=== PATIENT | female | born 1950 | race Caucasian/White ===

== ENCOUNTER 2018-04-07 12:54 | Outpatient (CLI) | payer MEDICARE | END 2018-04-07 12:55 | disposition home or self-care (01) | LOC: BICMAMMO 12:54 | PROVIDERS: ATTEND Family Medicine | DX: Z12.31 Encounter for screening mammogram for malignant neoplasm of breast (principal); Z00.00 Encounter for general adult medical examination without abnormal findings; R92.1 Mammographic calcification found on diagnostic imaging of breast; Z80.3 Family history of malignant neoplasm of breast; Z85.6 Personal history of leukemia | CPT/HCPCS: 77063; 77067 ==

== ENCOUNTER 2018-04-13 08:49 | Outpatient (CLI) | payer MEDICARE, OTHER | END 2018-04-13 08:50 | disposition home or self-care (01) | LOC: BICCT 08:49 | PROVIDERS: ATTEND Otolaryngology Plastic Surgery within the Head & Neck | DX: R59.9 Enlarged lymph nodes, unspecified (principal) | CPT/HCPCS: 70490 ==

== ENCOUNTER 2018-04-25 14:18 | Outpatient (CLI) | payer MEDICARE | END 2018-04-25 14:19 | disposition home or self-care (01) | LOC: BICMAMMO 14:18 | PROVIDERS: ATTEND Family Medicine | DX: R92.1 Mammographic calcification found on diagnostic imaging of breast (principal); Z80.3 Family history of malignant neoplasm of breast; Z85.6 Personal history of leukemia | CPT/HCPCS: 76642; 77065; G0279 ==

== ENCOUNTER 2019-10-05 19:30 | Outpatient (CLI) | payer MEDICARE, BC | END 2019-10-05 19:31 | disposition home or self-care (01) | LOC: SLEEPLAB 19:30 | PROVIDERS: ATTEND Family Medicine | DX: G47.33 Obstructive sleep apnea (adult) (pediatric) (principal); R53.83 Other fatigue; R06.83 Snoring; F41.9 Anxiety disorder, unspecified; G47.9 Sleep disorder, unspecified; I10 Essential (primary) hypertension; E66.9 Obesity, unspecified; Z68.43 Body mass index [BMI] 50.0-59.9, adult | CPT/HCPCS: 95811 ==

== ENCOUNTER 2021-06-04 10:52 | Outpatient (CLI) | payer MEDICARE | END 2021-06-04 10:53 | disposition home or self-care (01) | LOC: BICRAD 10:52 | PROVIDERS: ATTEND Family Medicine | DX: R06.02 Shortness of breath (principal) | CPT/HCPCS: 36415; 71046; 80061; 80076 ==

== ENCOUNTER 2023-10-19 16:33 | Inpatient (IN) | payer MEDICARE ==
[2023-10-19 17:29] LABS: #Basophils 0.1 thou/uL (0.0-0.2); #Eosinphils 0.2 thou/uL (0.0-0.7); #Monocytes 0.5 thou/uL (0.11-0.59); %Eosinophils 2.4 % (0.0-10.0); %Lymphocytes 29.5 % (21.0-51.0); %Monocytes 7.9 % (0.0-10.0); %Neutrophils 59.1 % (42.0-75.0); Hematocrit 40.6 % (36.0-47.0); Mean Corpuscular Hemoglobin 33.4 pg (27.0-31.0); Mean Corpuscular Volume 104.4 fl (78.0-98.0); Mean Platelet Volume 9.5 fL (7.4-10.4); Platelet Count 252 10x3/uL (130-400); RBC Distribution Width 15.6 % (11.5-14.5); Red Blood Cell (RBC) Count 3.89 mill/uL (4.20-5.40); White Blood Cell (WBC) Count 6.7 10x3/uL (4.8-10.8)
[2023-10-19 17:58] LABS: Troponin I Less than 0.010 ng/mL (< 0.028)
[2023-10-19 17:59] LABS: ALT (SGPT) 8 U/L (8-55); AST (SGOT) 13 U/L (5-34); Albumin 3.8 g/dL (3.4-4.8); Alkaline Phosphatase 116 U/L (40-110); Anion Gap 17 mmol/L (10-20); BUN (Urea Nitrogen) 14 mg/dL (9.8-20.1); Bilirubin, Total 0.3 mg/dL (0.2-1.2); Calc. Creatinine Clearance 0 mL/min (70-130); Carbon Dioxide 24 mmol/L (23-31); Chloride 106 mmol/L (98-107); Estimated GFR 62; Globulin 3.1 g/dL (2.4-3.5); Glucose 165 mg/dL (83-110); Protein, Total 6.9 g/dL (5.8-8.1); Sodium 143 mmol/L (136-145)
[2023-10-19 18:10] LABS: INR-International Normal Ratio 1.1; PTT 27.8 sec (22.9-36.1); Prothrombin Time 14.2 sec (12.0-14.7)
[2023-10-19] MEDS ORDERED: Acetaminophen 325 MG TAB PO PRN (19:52)
[2023-10-19] MEDS ORDERED: levETIRAcetam 500 MG/5 ML VIAL ONE (19:57)
[2023-10-19] MEDS ORDERED: Lacosamide 200 MG in Sodium Chloride 0.9% 50 ML IVPB SCH (20:15)
[2023-10-19 22:58] VITALS: BMI 40.8
[2023-10-20] MEDS ORDERED: Lorazepam 2 MG/ML VIAL SLOW IVP PRN (03:03)
[2023-10-20 04:57] LABS: #Basophils 0.1 thou/uL (0.0-0.2); #Eosinphils 0.1 thou/uL (0.0-0.7); #Monocytes 0.7 thou/uL (0.11-0.59); #Neutrophils 2.9 thou/uL (1.40-6.50); %Basophils 0.8 % (0.0-1.0); %Eosinophils 1.5 % (0.0-10.0); %Lymphocytes 47.5 % (21.0-51.0); %Monocytes 9.5 % (0.0-10.0); %Neutrophils 40.6 % (42.0-75.0); Hematocrit 37.4 % (36.0-47.0); Hemoglobin 12.2 g/dL (12.0-16.0); Mean Corpuscular HGB CONC 32.6 g/dL (32.0-36.0); Mean Corpuscular Hemoglobin 33.7 pg (27.0-31.0); Mean Corpuscular Volume 103.3 fl (78.0-98.0); Mean Platelet Volume 9.3 fL (7.4-10.4); Platelet Count 240 10x3/uL (130-400); RBC Distribution Width 15.5 % (11.5-14.5); Red Blood Cell (RBC) Count 3.62 mill/uL (4.20-5.40); White Blood Cell (WBC) Count 7.1 10x3/uL (4.8-10.8)
[2023-10-20] MEDS: Levothyroxine 150 MCG TAB PO SCH (05:11)
[2023-10-20 05:28] LABS: Anion Gap 12 mmol/L (10-20); BUN (Urea Nitrogen) 13 mg/dL (9.8-20.1); Calc. Creatinine Clearance 103 mL/min (70-130); Calcium 8.9 mg/dL (7.8-10.44); Carbon Dioxide 26 mmol/L (23-31); Chloride 109 mmol/L (98-107); Estimated GFR 69; Glucose 118 mg/dL (83-110); Potassium 4.4 mmol/L (3.5-5.1); Sodium 143 mmol/L (136-145)
[2023-10-20] MEDS: Metoprolol Tartrate 25 MG TAB PO SCH ×2 (10:41→20:23)
[2023-10-20] MEDS: levETIRAcetam 500 MG TAB PO SCH ×2 (10:42→20:24)
[2023-10-20] MEDS: Apixaban 5 MG TAB PO SCH ×2 (10:42→20:23)
[2023-10-20] MEDS: Sertraline 100 MG TAB PO SCH (10:42)
[2023-10-20] MEDS: Losartan 25 MG TAB PO SCH (10:43)
[2023-10-20] MEDS: Letrozole 2.5 MG TAB PO SCH (10:43)
[2023-10-20] MEDS: Lacosamide 50 mg Tablet PO SCH ×2 (10:44→20:23)
[2023-10-20] MEDS: Ondansetron PF 4 MG/2 ML Vial IVP PRN (12:24)
[2023-10-21 04:11] LABS: #Basophils 0.1 thou/uL (0.0-0.2); #Eosinphils 0.2 thou/uL (0.0-0.7); #Monocytes 0.6 thou/uL (0.11-0.59); %Eosinophils 3.8 % (0.0-10.0); %Lymphocytes 53.4 % (21.0-51.0); %Neutrophils 32.5 % (42.0-75.0); Hematocrit 39.9 % (36.0-47.0); Hemoglobin 12.7 g/dL (12.0-16.0); Mean Corpuscular HGB CONC 31.8 g/dL (32.0-36.0); Mean Corpuscular Hemoglobin 33.4 pg (27.0-31.0); Mean Platelet Volume 9.6 fL (7.4-10.4); Platelet Count 225 10x3/uL (130-400); RBC Distribution Width 15.8 % (11.5-14.5); White Blood Cell (WBC) Count 6.1 10x3/uL (4.8-10.8)
[2023-10-21 04:31] LABS: Anion Gap 12 mmol/L (10-20); BUN (Urea Nitrogen) 15 mg/dL (9.8-20.1); Calc. Creatinine Clearance 83 mL/min (70-130); Calcium 9.1 mg/dL (7.8-10.44); Carbon Dioxide 26 mmol/L (23-31); Chloride 108 mmol/L (98-107); Estimated GFR 54; Glucose 110 mg/dL (83-110); Potassium 4.1 mmol/L (3.5-5.1); Sodium 142 mmol/L (136-145)
[2023-10-21] MEDS: Levothyroxine 150 MCG TAB PO SCH (05:18)
[2023-10-21] MEDS: Lacosamide 50 mg Tablet PO SCH ×2 (09:34→20:14)
[2023-10-21] MEDS: levETIRAcetam 500 MG TAB PO SCH ×2 (09:34→20:14)
[2023-10-21] MEDS: Losartan 25 MG TAB PO SCH (09:35)
[2023-10-21] MEDS: Apixaban 5 MG TAB PO SCH ×2 (09:35→20:14)
[2023-10-21] MEDS: Sertraline 100 MG TAB PO SCH (09:35)
[2023-10-21] MEDS: Letrozole 2.5 MG TAB PO SCH (09:35)
[2023-10-21] MEDS: Metoprolol Tartrate 25 MG TAB PO SCH ×2 (09:36→20:14)
[2023-10-21] MEDS: Ondansetron PF 4 MG/2 ML Vial IVP PRN (17:26)
[2023-10-22 05:36] LABS: Anion Gap 13 mmol/L (10-20); BUN (Urea Nitrogen) 15 mg/dL (9.8-20.1); Calc. Creatinine Clearance 98 mL/min (70-130); Calcium 8.7 mg/dL (7.8-10.44); Carbon Dioxide 24 mmol/L (23-31); Chloride 106 mmol/L (98-107); Estimated GFR 65; Glucose 106 mg/dL (83-110); Sodium 139 mmol/L (136-145)
[2023-10-22] MEDS: Levothyroxine 150 MCG TAB PO SCH (05:44)
[2023-10-22] MEDS: Letrozole 2.5 MG TAB PO SCH (09:47)
[2023-10-22] MEDS: Apixaban 5 MG TAB PO SCH ×2 (09:48→20:14)
[2023-10-22] MEDS: Metoprolol Tartrate 25 MG TAB PO SCH ×2 (09:48→20:14)
[2023-10-22] MEDS: levETIRAcetam 500 MG TAB PO SCH ×2 (09:48→20:14)
[2023-10-22] MEDS: Lacosamide 50 mg Tablet PO SCH ×2 (09:48→20:14)
[2023-10-22] MEDS: Sertraline 100 MG TAB PO SCH (09:49)
[2023-10-22] MEDS: Losartan 25 MG TAB PO SCH (09:49)
[2023-10-23] MEDS: Levothyroxine 150 MCG TAB PO SCH (05:41)
[2023-10-23 08:09] VITALS: TEMP 97.8
[2023-10-23] MEDS ORDERED: levETIRAcetam 500 MG TAB PO SCH (09:00)
[2023-10-23] MEDS: Apixaban 5 MG TAB PO SCH (09:57)
[2023-10-23] MEDS: Losartan 25 MG TAB PO SCH (09:58)
[2023-10-23] MEDS: Lacosamide 50 mg Tablet PO SCH (09:58)
[2023-10-23] MEDS: Metoprolol Tartrate 25 MG TAB PO SCH (09:58)
[2023-10-23] MEDS: Sertraline 100 MG TAB PO SCH (09:59)
[2023-10-23] MEDS: Letrozole 2.5 MG TAB PO SCH (09:59)
[2023-10-23] MEDS: levETIRAcetam 500 MG TAB PO SCH (10:03)
[2023-10-23 14:29] VITALS: BP 131/76
== END 2023-10-23 12:17 | disposition home or self-care (01) | DRG 101 ==
LOC: ERS 16:33 → 2SE 19:54 → INTOOBSV 19:54 → 2SE 10-20 16:55 → OBSVTOIN 10-21 16:52
PROVIDERS: ADMIT Internal Medicine; ATTEND Internal Medicine
PROC: 4A00X4Z Measurement of Central Nervous Electrical Activity, External Approach (ICD-10-PCS; principal; 2023-10-20)
PROC: 5A09357 Assistance with Respiratory Ventilation, Less than 24 Consecutive Hours, Continuous Positive Airway Pressure (ICD-10-PCS; 2023-10-21)
DX: G40.919 Epilepsy, unspecified, intractable, without status epilepticus (principal); C79.51 Secondary malignant neoplasm of bone; I10 Essential (primary) hypertension; E03.9 Hypothyroidism, unspecified; Z66 Do not resuscitate; C50.912 Malignant neoplasm of unspecified site of left female breast; G47.33 Obstructive sleep apnea (adult) (pediatric); E66.9 Obesity, unspecified; I48.0 Paroxysmal atrial fibrillation; R42 Dizziness and giddiness; Z91.018 Allergy to other foods; Z88.5 Allergy status to narcotic agent; Z88.8 Allergy status to other drugs, medicaments and biological substances; Z98.890 Other specified postprocedural states; Z90.49 Acquired absence of other specified parts of digestive tract; Z90.710 Acquired absence of both cervix and uterus; Z90.89 Acquired absence of other organs; Z80.3 Family history of malignant neoplasm of breast; Z87.891 Personal history of nicotine dependence
CPT/HCPCS: 36415; 36416; 70450; 70553; 71045; 80048; 80053; 80177; 84443; 84484; 85025; 85610; 85730; 93005; 95711; 95819; 96365; 96367; 96375; C9254; G0378; J1953; J2060; J2405

== ENCOUNTER 2023-10-23 18:58 | Inpatient (IN) | payer MEDICARE ==
[2023-10-23] MEDS ORDERED: Ondansetron PF 4 MG/2 ML Vial IVP PRN (19:53)
[2023-10-23] MEDS ORDERED: Ipratropium/Albuterol 3 ML NEB NEB PRN (19:53)
[2023-10-23] MEDS ORDERED: Ketorolac Tromethamine 30 MG/ML VIAL IVP PRN (19:57)
[2023-10-23] MEDS ORDERED: Cyclobenzaprine 10 MG TAB PO PRN (19:58)
[2023-10-23] MEDS ORDERED: hydrALAZINE 20 MG/ML VIAL SLOW IVP PRN (20:16)
[2023-10-23] MEDS ORDERED: fentaNYL 50 mcg/mL 1 mL Vial ONE (22:38)
[2023-10-23] MEDS ORDERED: PROPOFOL 0 ML ONE (22:39)
[2023-10-23] MEDS ORDERED: PROPOFOL 20 ML ONE (23:08)
[2023-10-24 00:59] VITALS: BMI 41.8
[2023-10-24] MEDS: Acetaminophen 500 MG TAB PO SCH ×5 (01:12→20:44)
[2023-10-24] MEDS: Sodium Chloride 0.9% 1,000 ML IV SCH ×3 (01:12→11:23)
[2023-10-24] MEDS: Famotidine/PF 20 mg/2ml Vial SLOW IVP SCH ×3 (01:12→20:44)
[2023-10-24] MEDS: Lacosamide 50 mg Tablet PO SCH ×3 (01:12→21:15)
[2023-10-24] MEDS: Pregabalin 25 MG CAP PO SCH ×3 (01:13→21:15)
[2023-10-24] MEDS: levETIRAcetam 500 MG TAB PO SCH ×3 (01:13→20:45)
[2023-10-24] MEDS: Metoprolol Tartrate 25 MG TAB PO SCH ×3 (01:13→20:44)
[2023-10-24] MEDS: Senokot S 8.6-50 MG TAB PO SCH ×3 (01:13→20:44)
[2023-10-24] MEDS: Ketorolac Tromethamine 30 MG/ML VIAL IVP SCH ×4 (01:14→17:41)
[2023-10-24] MEDS: Levothyroxine 150 MCG TAB PO SCH (05:51)
[2023-10-24 06:55] LABS: #Basophils 0.1 thou/uL (0.0-0.2); #Monocytes 0.8 thou/uL (0.11-0.59); #Neutrophils 4.8 thou/uL (1.40-6.50); %Basophils 0.6 % (0.0-1.0); %Eosinophils 0.5 % (0.0-10.0); %Lymphocytes 34.8 % (21.0-51.0); %Neutrophils 54.9 % (42.0-75.0); Hemoglobin 12.2 g/dL (12.0-16.0); Mean Corpuscular Hemoglobin 33.7 pg (27.0-31.0); Mean Corpuscular Volume 102.2 fl (78.0-98.0); Mean Platelet Volume 9.8 fL (7.4-10.4); Platelet Count 249 10x3/uL (130-400); RBC Distribution Width 14.8 % (11.5-14.5); Red Blood Cell (RBC) Count 3.62 mill/uL (4.20-5.40); White Blood Cell (WBC) Count 8.7 10x3/uL (4.8-10.8)
[2023-10-24 07:18] LABS: INR-International Normal Ratio 1.3; PTT 29.3 sec (22.9-36.1); Prothrombin Time 16.4 sec (12.0-14.7)
[2023-10-24 07:24] LABS: Anion Gap 13 mmol/L (10-20); BUN (Urea Nitrogen) 20 mg/dL (9.8-20.1); Calc. Creatinine Clearance 92 mL/min (70-130); Calcium 8.9 mg/dL (7.8-10.44); Carbon Dioxide 25 mmol/L (23-31); Chloride 107 mmol/L (98-107); Estimated GFR 59; Glucose 103 mg/dL (83-110); Sodium 141 mmol/L (136-145)
[2023-10-24] MEDS ORDERED: CEFAZOLIN 2 GM in Sodium Chloride 0.9% 100 ML IVPB SCH (07:30)
[2023-10-24] MEDS: Polyethylene Glycol 3350 17 GM Packet PO SCH (10:08)
[2023-10-24] MEDS: Sertraline 100 MG TAB PO SCH (11:24)
[2023-10-24] MEDS: Letrozole 2.5 MG TAB PO SCH (11:30)
[2023-10-24] MEDS ORDERED: CeleCOXIB 100 MG CAP PO SCH (21:00)
[2023-10-25] MEDS: Ketorolac Tromethamine 30 MG/ML VIAL IVP SCH ×3 (00:13→13:09)
[2023-10-25] MEDS: Acetaminophen 500 MG TAB PO SCH ×3 (03:29→14:03)
[2023-10-25] MEDS: Levothyroxine 150 MCG TAB PO SCH (05:37)
[2023-10-25 07:45] VITALS: TEMP 98.1
[2023-10-25] MEDS ORDERED: Famotidine 20 MG TAB PO SCH (09:00)
[2023-10-25] MEDS: levETIRAcetam 500 MG TAB PO SCH (09:46)
[2023-10-25] MEDS: Letrozole 2.5 MG TAB PO SCH (09:46)
[2023-10-25] MEDS: Sertraline 100 MG TAB PO SCH (09:46)
[2023-10-25] MEDS: Metoprolol Tartrate 25 MG TAB PO SCH (09:46)
[2023-10-25] MEDS: Senokot S 8.6-50 MG TAB PO SCH (09:50)
[2023-10-25] MEDS: Polyethylene Glycol 3350 17 GM Packet PO SCH (09:50)
[2023-10-25] MEDS: Pregabalin 25 MG CAP PO SCH (14:03)
[2023-10-25] MEDS: Lacosamide 50 mg Tablet PO SCH (14:04)
[2023-10-25 15:33] VITALS: BP 154/81
[2023-10-29] MEDS ORDERED: CeleCOXIB 100 MG CAP PO SCH (09:00)
== END 2023-10-25 15:47 | DRG 563 ==
LOC: ERS 18:58 → SURG A 19:58 → ERHOLD 22:37 → SURG A 10-24 00:28
PROVIDERS: ADMIT Surgery; ATTEND Surgery
DX: S82.851A Displaced trimalleolar fracture of right lower leg, initial encounter for closed fracture (principal); Z68.41 Body mass index [BMI] 40.0-44.9, adult; I10 Essential (primary) hypertension; E66.9 Obesity, unspecified; E03.9 Hypothyroidism, unspecified; I48.91 Unspecified atrial fibrillation; R56.9 Unspecified convulsions; W19.XXXA Unspecified fall, initial encounter; Z88.5 Allergy status to narcotic agent; Z88.8 Allergy status to other drugs, medicaments and biological substances; Z91.030 Bee allergy status; Z91.018 Allergy to other foods; Z91.09 Other allergy status, other than to drugs and biological substances; Z79.01 Long term (current) use of anticoagulants; Z85.3 Personal history of malignant neoplasm of breast; Z90.49 Acquired absence of other specified parts of digestive tract; Z90.710 Acquired absence of both cervix and uterus; Z87.891 Personal history of nicotine dependence; Z98.890 Other specified postprocedural states; Y92.9 Unspecified place or not applicable
CPT/HCPCS: 27818; 36415; 36416; 71045; 80048; 83880; 84146; 85025; 85610; 85730; 86850; 86900; 86901; 96374; 99152; G0390; J1885; J2405; J2704; J3010; J7050; S0028

== ENCOUNTER 2023-11-07 10:21 | Inpatient (IN) | payer MEDICARE ==
[2023-11-07 11:43] LABS: #Basophils 0.1 thou/uL (0.0-0.2); #Eosinphils 0.3 thou/uL (0.0-0.7); #Monocytes 0.6 thou/uL (0.11-0.59); #Neutrophils 3.6 thou/uL (1.40-6.50); %Basophils 1.1 % (0.0-1.0); %Eosinophils 3.5 % (0.0-10.0); %Lymphocytes 43.2 % (21.0-51.0); %Monocytes 7.7 % (0.0-10.0); %Neutrophils 44.3 % (42.0-75.0); Hematocrit 38.7 % (36.0-47.0); Hemoglobin 12.8 g/dL (12.0-16.0); Mean Corpuscular HGB CONC 33.1 g/dL (32.0-36.0); Mean Corpuscular Hemoglobin 33.3 pg (27.0-31.0); Mean Corpuscular Volume 100.8 fl (78.0-98.0); Mean Platelet Volume 9.4 fL (7.4-10.4); Platelet Count 370 10x3/uL (130-400); RBC Distribution Width 15.9 % (11.5-14.5); Red Blood Cell (RBC) Count 3.84 mill/uL (4.20-5.40); White Blood Cell (WBC) Count 8.1 10x3/uL (4.8-10.8)
[2023-11-07 12:09] LABS: ALT (SGPT) 7 U/L (8-55); AST (SGOT) 13 U/L (5-34); Albumin 3.4 g/dL (3.4-4.8); Alkaline Phosphatase 109 U/L (40-110); Anion Gap 15 mmol/L (10-20); BUN (Urea Nitrogen) 12 mg/dL (9.8-20.1); Bilirubin, Total 0.6 mg/dL (0.2-1.2); Calc. Creatinine Clearance 0 mL/min (70-130); Calcium 9.3 mg/dL (7.8-10.44); Carbon Dioxide 26 mmol/L (23-31); Chloride 107 mmol/L (98-107); Estimated GFR 70; Globulin 3.1 g/dL (2.4-3.5); Glucose 95 mg/dL (83-110); Magnesium 2.5 mg/dL (1.6-2.6); Potassium 3.5 mmol/L (3.5-5.1); Protein, Total 6.5 g/dL (5.8-8.1); Sodium 144 mmol/L (136-145)
[2023-11-07 12:11] LABS: Troponin I 0.015 ng/mL (< 0.028)
[2023-11-07 12:27] LABS: INR-International Normal Ratio 0.9; Prothrombin Time 12.7 sec (12.0-14.7)
[2023-11-07 12:28] LABS: PTT 26.6 sec (22.9-36.1)
[2023-11-07 12:40] LABS: Bilirubin Negative (Negative); Blood, Urine Negative (Negative); CAUTI Indications for Culture Pelvic or flank pain; Clarity Clear (Clear); Glucose, Urine (Dipstick) Normal (Negative); Ketone, Urine Negative (Negative); Leukocyte 500 Leu/uL (Negative); Nitrite Negative (Negative); Protein, Urine (Dipstick) Negative (Neg-Trace); RBC/HPF 0-3 HPF (0-3); Specific Gravity, Urine 1.023 (1.002-1.036); Squamous Epithelial 0-3 HPF (0-3); Urobilinogen Normal mg/dL (Less than 2); pH, Urine 5.5 (5.0-9.0)
[2023-11-07 12:47] LABS: Bacteria/HPF 1+ HPF (None Seen)
[2023-11-07 12:48] LABS: Calcium Oxalate Crystals Rare HPF (None Seen)
[2023-11-07 12:50] LABS: Urine Culture Reflex No No
[2023-11-07 12:55] VITALS: BMI 51.6
[2023-11-07] MEDS ORDERED: Ondansetron PF 4 MG/2 ML Vial SLOW IVP PRN (13:59)
[2023-11-07] MEDS ORDERED: Communication Order-Pharmacy FS SCH (14:00)
[2023-11-07] MEDS ORDERED: Acetaminophen 500 MG TAB ONE ×2 (14:23→19:32)
[2023-11-07] MEDS ORDERED: traMADol HCl 50 MG TAB ONE (14:24)
[2023-11-07] MEDS: Acetaminophen 500 MG TAB PO SCH ×2 (14:30→19:39)
[2023-11-07] MEDS: traMADol HCl 50 MG TAB PO PRN (14:30)
[2023-11-07] MEDS ORDERED: Metoprolol Tartrate 25 MG TAB ONE (19:32)
[2023-11-07] MEDS ORDERED: Metoprolol Tartrate 50 MG TAB ONE (19:32)
[2023-11-07] MEDS ORDERED: Senokot S 8.6-50 MG TAB ONE (19:32)
[2023-11-07] MEDS ORDERED: Famotidine 20 MG TAB ONE (19:33)
[2023-11-07] MEDS ORDERED: levETIRAcetam 500 MG TAB ONE (19:33)
[2023-11-07] MEDS ORDERED: Lacosamide 50 mg Tablet ONE (19:33)
[2023-11-07] MEDS: Famotidine 20 MG TAB PO SCH (20:03)
[2023-11-07] MEDS: Lacosamide 50 mg Tablet PO SCH (20:05)
[2023-11-07] MEDS: levETIRAcetam 500 MG TAB PO SCH (20:05)
[2023-11-07] MEDS: Senokot S 8.6-50 MG TAB PO SCH (20:05)
[2023-11-07] MEDS: Metoprolol Tartrate 25 MG TAB PO SCH (20:05)
[2023-11-07] MEDS: Cyclobenzaprine 10 MG TAB PO PRN (22:57)
[2023-11-07] MEDS: Pregabalin 25 MG CAP PO SCH (22:57)
[2023-11-08] MEDS: traMADol HCl 50 MG TAB PO PRN ×2 (03:53→18:51)
[2023-11-08] MEDS: Acetaminophen 500 MG TAB PO SCH ×4 (03:54→20:07)
[2023-11-08] MEDS: Levothyroxine 150 MCG TAB PO SCH (06:28)
[2023-11-08] MEDS: levETIRAcetam 500 MG TAB PO SCH ×2 (08:35→20:04)
[2023-11-08] MEDS: Lacosamide 50 mg Tablet PO SCH ×2 (08:36→20:05)
[2023-11-08] MEDS: Metoprolol Tartrate 25 MG TAB PO SCH ×2 (08:36→20:06)
[2023-11-08] MEDS: Losartan 25 MG TAB PO SCH (08:36)
[2023-11-08] MEDS: Letrozole 2.5 MG TAB PO SCH (08:39)
[2023-11-08] MEDS: Sertraline 100 MG TAB PO SCH (08:39)
[2023-11-08] MEDS: Pregabalin 25 MG CAP PO SCH ×2 (08:39→20:06)
[2023-11-08] MEDS: Senokot S 8.6-50 MG TAB PO SCH ×2 (08:42→20:06)
[2023-11-08] MEDS: Famotidine 20 MG TAB PO SCH ×3 (08:42→20:05)
[2023-11-08] MEDS ORDERED: CEFAZOLIN 2 GM in Sodium Chloride 0.9% 100 ML IVPB SCH (13:00)
[2023-11-08] MEDS ORDERED: PROPOFOL 20 ML ONE (15:45)
[2023-11-08] MEDS ORDERED: fentaNYL PF 100 MCG/2 ML SYRINGE ONE ×3 (15:45→18:00)
[2023-11-08] MEDS ORDERED: Ketamine In 0.9 % NaCl 50 MG/5 ML SYRINGE ONE (15:45)
[2023-11-08] MEDS ORDERED: Lidocaine 1% PF 5 ML VIAL ONE ×2 (15:45→16:23)
[2023-11-08] MEDS ORDERED: CEFAZOLIN 2 GM VIAL ONE (16:08)
[2023-11-08] MEDS ORDERED: Sodium Chloride 0.9% 100 ML ONE (16:09)
[2023-11-08] MEDS ORDERED: Ondansetron PF 4 MG/2 ML Vial ONE ×2 (16:23→17:04)
[2023-11-08] MEDS ORDERED: Ketorolac Tromethamine 30 MG/ML VIAL ONE ×2 (16:23→17:18)
[2023-11-08] MEDS ORDERED: PROPOFOL 200 MG/20 ML VIAL ONE (16:23)
[2023-11-08] MEDS ORDERED: Midazolam HCl 2 mg/2 ml Vial ONE (17:24)
[2023-11-08] MEDS ORDERED: fentaNYL 50 mcg/mL 1 mL Vial ONE (17:26)
[2023-11-08] MEDS ORDERED: HYDROmorphone 2 MG/ML VIAL SLOW IVP PRN (17:29)
[2023-11-08] MEDS ORDERED: Promethazine HCl 25 MG/ML VIAL IM PRN (17:29)
[2023-11-08] MEDS ORDERED: Ondansetron HCl/PF 4 MG/2 ML Vial IVP PRN (17:29)
[2023-11-08] MEDS: fentaNYL 50 mcg/mL 1 mL Vial SLOW IVP PRN (20:03)
[2023-11-08] MEDS: Cyclobenzaprine 10 MG TAB PO PRN (20:07)
[2023-11-09] MEDS: Acetaminophen 500 MG TAB PO SCH ×2 (01:14→09:35)
[2023-11-09] MEDS: CEFAZOLIN 2 GM in Sodium Chloride 0.9% 100 ML IVPB SCH ×2 (01:14→09:35)
[2023-11-09] MEDS: Levothyroxine 150 MCG TAB PO SCH (06:14)
[2023-11-09] MEDS: traMADol HCl 50 MG TAB PO PRN ×2 (06:15→11:58)
[2023-11-09] MEDS: fentaNYL 50 mcg/mL 1 mL Vial SLOW IVP PRN (06:18)
[2023-11-09] MEDS ORDERED: Acetaminophen 500 MG TAB PO PRN (08:25)
[2023-11-09 09:23] LABS: Anion Gap 16 mmol/L (10-20); BUN (Urea Nitrogen) 12 mg/dL (9.8-20.1); Calc. Creatinine Clearance 113 mL/min (70-130); Calcium 8.5 mg/dL (7.8-10.44); Carbon Dioxide 20 mmol/L (23-31); Chloride 108 mmol/L (98-107); Estimated GFR 70; Glucose 111 mg/dL (83-110); Potassium 4.2 mmol/L (3.5-5.1); Sodium 140 mmol/L (136-145)
[2023-11-09] MEDS: Losartan 25 MG TAB PO SCH (09:34)
[2023-11-09] MEDS: Senokot S 8.6-50 MG TAB PO SCH ×2 (09:34→22:00)
[2023-11-09] MEDS: Letrozole 2.5 MG TAB PO SCH ×2 (09:34→22:02)
[2023-11-09] MEDS: Lacosamide 50 mg Tablet PO SCH ×2 (09:34→22:06)
[2023-11-09] MEDS: Famotidine 20 MG TAB PO SCH ×2 (09:35→22:00)
[2023-11-09] MEDS: Cyclobenzaprine 10 MG TAB PO PRN (09:35)
[2023-11-09] MEDS: levETIRAcetam 500 MG TAB PO SCH ×2 (09:35→22:00)
[2023-11-09] MEDS: Pregabalin 25 MG CAP PO SCH ×2 (09:35→21:59)
[2023-11-09] MEDS: Sertraline 100 MG TAB PO SCH (09:35)
[2023-11-09] MEDS: Metoprolol Tartrate 25 MG TAB PO SCH ×2 (09:35→22:00)
[2023-11-09] MEDS ORDERED: Sodium Chloride 0.9% 500 ML IV SCH (11:00)
[2023-11-09] MEDS ORDERED: Ketorolac Tromethamine 30 MG/ML VIAL IVP PRN (11:01)
[2023-11-10] MEDS: Levothyroxine 150 MCG TAB PO SCH (05:42)
[2023-11-10] MEDS: Senokot S 8.6-50 MG TAB PO SCH ×2 (08:49→21:06)
[2023-11-10] MEDS: Metoprolol Tartrate 25 MG TAB PO SCH ×2 (08:50→21:08)
[2023-11-10] MEDS: levETIRAcetam 500 MG TAB PO SCH ×2 (08:50→21:07)
[2023-11-10] MEDS: Losartan 25 MG TAB PO SCH (08:50)
[2023-11-10] MEDS: Famotidine 20 MG TAB PO SCH ×2 (08:51→21:08)
[2023-11-10] MEDS: Pregabalin 25 MG CAP PO SCH ×2 (08:51→21:07)
[2023-11-10] MEDS: Lacosamide 50 mg Tablet PO SCH ×2 (08:52→21:06)
[2023-11-10] MEDS: traMADol HCl 50 MG TAB PO PRN (08:52)
[2023-11-10] MEDS: Sertraline 100 MG TAB PO SCH (08:53)
[2023-11-10] MEDS: Letrozole 2.5 MG TAB PO SCH (08:53)
[2023-11-10] MEDS ORDERED: FLU VACC QS2023(65UP)/MF59C/PF 60 MCG/0.5 ML SYRINGE IM ONE (09:00)
[2023-11-10] MEDS: Aspirin 81 mg Enteric Coated Tablet PO SCH (21:07)
[2023-11-11] MEDS: Levothyroxine 150 MCG TAB PO SCH (05:00)
[2023-11-11] MEDS: traMADol HCl 50 MG TAB PO PRN (06:24)
[2023-11-11] MEDS: Sertraline 100 MG TAB PO SCH (08:30)
[2023-11-11] MEDS: Losartan 25 MG TAB PO SCH (08:30)
[2023-11-11] MEDS: Pregabalin 25 MG CAP PO SCH (08:31)
[2023-11-11] MEDS: Famotidine 20 MG TAB PO SCH (08:31)
[2023-11-11] MEDS: levETIRAcetam 500 MG TAB PO SCH (08:31)
[2023-11-11] MEDS: Aspirin 81 mg Enteric Coated Tablet PO SCH (08:31)
[2023-11-11] MEDS: Metoprolol Tartrate 25 MG TAB PO SCH (08:31)
[2023-11-11] MEDS: Letrozole 2.5 MG TAB PO SCH (08:32)
[2023-11-11] MEDS: Senokot S 8.6-50 MG TAB PO SCH (08:32)
[2023-11-11] MEDS: Lacosamide 50 mg Tablet PO SCH (08:36)
[2023-11-11 12:02] VITALS: BP 115/65; TEMP 98.3
== END 2023-11-11 14:20 | DRG 493 ==
LOC: ERS 10:21 → ERHOLD 11:47 → SURG B 20:39
PROVIDERS: ADMIT Orthopaedic Surgery; ATTEND Orthopaedic Surgery
PROC: 0QSJ04Z Reposition Right Fibula with Internal Fixation Device, Open Approach (ICD-10-PCS; principal; 2023-11-08)
PROC: 0QSG04Z Reposition Right Tibia with Internal Fixation Device, Open Approach (ICD-10-PCS; 2023-11-08)
DX: S82.841A Displaced bimalleolar fracture of right lower leg, initial encounter for closed fracture (principal); Z68.41 Body mass index [BMI] 40.0-44.9, adult; G40.909 Epilepsy, unspecified, not intractable, without status epilepticus; I10 Essential (primary) hypertension; K21.9 Gastro-esophageal reflux disease without esophagitis; F41.9 Anxiety disorder, unspecified; E03.9 Hypothyroidism, unspecified; G47.33 Obstructive sleep apnea (adult) (pediatric); W19.XXXA Unspecified fall, initial encounter; C50.919 Malignant neoplasm of unspecified site of unspecified female breast; I48.0 Paroxysmal atrial fibrillation; E66.01 Morbid (severe) obesity due to excess calories; Z98.890 Other specified postprocedural states; Z88.5 Allergy status to narcotic agent; Z88.8 Allergy status to other drugs, medicaments and biological substances; Z86.73 Personal history of transient ischemic attack (TIA), and cerebral infarction without residual deficits; Z90.710 Acquired absence of both cervix and uterus; Z90.49 Acquired absence of other specified parts of digestive tract; Z87.891 Personal history of nicotine dependence; Y92.003 Bedroom of unspecified non-institutional (private) residence as the place of occurrence of the external cause
CPT/HCPCS: 36415; 70450; 71045; 80048; 80053; 81001; 83735; 84484; 85025; 85610; 85730; 93005; 96360; 96361; C1713; J1885; J2250; J2405; J2704; J3010; J3490; J7030